=== PATIENT | female | born 1935 | race Caucasian/White ===

== ENCOUNTER 2016-08-08 16:07 | Emergency (ER) | payer OTHER ==
[~2016-08-08] VITALS: Ht 147.3 cm; Wt 68.9 kg
[~2016-08-08 16:07] MED LIST: AZOR 5-40 MG T1 EACH PO; DIVALPROEX SOD250 M3 PO; EXELON1 EAC1 TOP; NADOLOL40 M1 PO; SIMVASTATIN20 M2 PO; SYNTHROID112 MCG PO
--- NOTE | 2016-08-08 17:04 | ED MVC/FALL/TRAUMA COMPLAINT ---
History of Present Illness General Chief Complaint: Fall Stated Complaint: PT HAD FALL ,LT SHOULDER AND KNEE Source: patient Exam Limitations: no limitations Allergies Coded Allergies: oxycodone (From PERCOCET) (DOES NOT TOLERATE 09/21/15) Reconcile Medications Amlodipine Bes/Olmesartan Med (Elva 5-40 MG Tablet) 1 EACH TABLET 1 TAB PO DAILY BP (Reported) Ascorbate Calcium (Vitamin C) (Unknown Strength) TABLET (Unknown Dose) PO DAILY SUPPLEMENT (Reported) Cholecalciferol (Vitamin D3) (Vitamin D) (Unknown Strength) TABLET (Unknown Dose) PO DAILY SUPPLEMENT (Reported) Divalproex Sodium (Divalproex Sodium ER) 250 MG TAB.ER.24H 1 TAB PO DAILY MOOD (Reported) Levothyroxine Sodium (Synthroid) 112 MCG TABLET 1 TAB PO DAILY THYROID ( Reported) Multivit-Min/Iron/Folic/Lutein (Centrum Silver Women Tablet) 8 MG IRON-400 MCG- 300 MCG TABLET 1 TAB PO DAILY SUPPLEMENT (Reported) Nadolol 40 MG TABLET 20 MG PO DAILY HTN (Reported) Rivastigmine (Exelon) 9.5 MG/Patch PAT 1 PAT TOP DAILY DEMENTIA (Reported) Sertraline HCl 25 MG TABLET 1 TAB PO DAILY MENTAL HEALTH (Reported) Simvastatin (Simvastatin*) 20 MG TABLET 1 TAB PO Tuesday CHOL ( Reported) Triage Note: 80 YEAR OLD FEMALE TO ER WITH COMPLAINTS OF L KNEE PAIN WITH MOVEMENT ONLY AND SWELLING AND L SHOULDER PAIN WHEN SHE MOVES IT. DENIES PAIN WHILE SITTING STILL. PT STATES THAT DURING THE NIGHT SHE GOT UP TO USE THE BATHROOM WHEN SHE TRIPPED AND FELL. PT WAS ABLE TO GET HERSELF BACK TO BED AND WAS ABLE TO GET UP THIS AM AND GET DRESSED, DENIES PAIN WHILE SITTING Triage Nurses Notes Reviewed? yes Onset: Abrupt Duration: hour(s):, constant, continues in ED Timing: recent history Severity: moderate, severe Method of Injury: fall Loss of Consciousness: no loss of consciousness No Modifying Factors: none HPI: 80-year-old female comes into emergency room for further evaluation of left shoulder and left knee pain after a fall. Patient has some baseline dementia but is currently alert and oriented 3. She reports that while going to the bathroom this morning around 3 AM she slipped on a rug in the bathroom. Patient fell onto her left knee and then onto the ground. Her her left shoulder as well. Denies any headache or neck pain. Denies any chest or abdominal pain (YUDITH SANTILLAN) Vital Signs & Intake/Output Vital Signs & Intake/Output ED Intake and Output 08/09 0000 08/08 1200 Intake Total Output Total Balance Patient 152 lb Weight Past History Travel History Traveled to [place] past 21 day No Medical History Any Pertinent Medical History? see below for history Neurological: dementia EENT: NONE Cardiovascular: hypertension, CHOL Respiratory: NONE Gastrointestinal: NONE Hepatic: NONE Renal: NONE Musculoskeletal: NONE Psychiatric: NONE Endocrine: NONE Surgical History Surgical History: non-contributory Psychosocial History What is your primary language Malian Tobacco Use: Never used ETOH Use: denies use Illicit Drug Use: denies illicit drug use Family History Hx Contributory? No (YUDITH SANTILLAN) Review of Systems Review of Systems Constitutional: Reports: no symptoms. Eyes: Reports: no symptoms. Ears, Nose, Throat, Mouth: Reports: no symptoms. Respiratory: Reports: no symptoms. Cardiovascular: Reports: no symptoms. Gastrointestinal/Abdominal: Reports: no symptoms. Genitourinary: Reports: no symptoms. Musculoskeletal: Reports: see HPI. Skin: Reports: no symptoms. Neurological/Psychological: Reports: no symptoms. All Other Systems: Reviewed and Negative (YUDITH SANTILLAN) Physical Exam Physical Exam General Appearance: well developed/nourished, alert, awake Head: atraumatic, normal appearance Eyes: Bilateral: normal appearance, PERRL, EOMI. Ears, Nose, Throat, Mouth: hearing grossly normal, moist mucous membrane Neck: normal inspection, full range of motion Respiratory: normal breath sounds, no respiratory distress Cardiovascular: regular rate/rhythm Gastrointestinal: soft, non-tender Back: normal inspection Extremities: tenderness to left knee, limited range of motion, Neurologic/Psych: awake, alert, oriented 2 Skin: intact, normal color Core Measures ACS in differential dx? No Severe Sepsis Present: No Septic Shock Present: No (YUDITH SANTILLAN) Progress Differential Diagnosis: abd injury, C/T/L spine injury, ext injury, ICH, pelvis injury, pnemothorax, spinal cord injury Diagnostic Imaging: Viewed by Me: Radiology Read, CT Scan. Discussed w/RAD: Radiology Read, CT Scan. Initial ED EKG: normal intervals, normal p-waves, normal sinus rhythm, rate (57) , LBBB Hand-Off Endorsed To: HERMILA MURPHY Endorsed Time: 2035 Pending: EKG, labs Comments: SERVICE DATE: 08/08/16 EXAM TYPE: CAT - CT HEAD WO IV CONTRAST EXAMINATION: CT HEAD WITHOUT CONTRAST CLINICAL INFORMATION: Pain following a fall. COMPARISON: CT head dated 06/15/2009. TECHNIQUE: Contiguous axial imaging was performed from the skull base to vertex without intravenous administration of contrast. DLP: 600.71 mGy-cm. FINDINGS: The ventricles and sulci are enlarged, slightly increased since the prior examination. No visualized masses or midline shift are seen. There is no intra-axial or extra-axial hemorrhage. There are no fluid collections. Decreased attenuation is seen in the periventricular white matter, increased since the prior examination and compatible with chronic small vessel ischemic disease. The dickerson-white discrimination is preserved. The included paranasal sinuses and mastoid air cells are well aerated. The calvarium is intact. IMPRESSION: No intracranial hemorrhage or mass effect. Increased generalized age-related atrophy and chronic small vessel white matter ischemic changes. DICTATED BY: LOWELL DAMIAN MD DATE/TIME DICTATED:08/08/161756 [employer] COACH:JONNY DATE/TIME TRANSCRIBED:08/08/161756 EXAM TYPE: RAD - XRY-AP PELVIS; XRY-KNEE COMPLETE LEFT; XRY-SHOULDER COMPLETE- LEFT EXAMINATION: XR SHOULDER, LEFT XR PELVIS XR KNEE, LEFT CLINICAL INFORMATION: Pain following a fall. COMPARISON: Left shoulder radiographs dated 03/18/2014, hip radiographs dated 06/05/2013, and left knee radiographs dated 10/30/2006. TECHNIQUE: Four views of the left shoulder, a single AP view of the pelvis, as well as 4 views of the left knee were obtained. FINDINGS: LEFT SHOULDER: Superior subluxation of the humeral head, likely indicating an underlying full-thickness rotator cuff tear. Acromial undersurface bony remodeling as well as acromioclavicular marginal osteophytes. No acute fracture. Glenohumeral marginal osteophytes. No osseous erosion. Surgical clips redemonstrated within the left axilla. PELVIS: Degenerative disc disease within the visualized lower lumbar spine. Mild degenerative changes at the bilateral sacroiliac joints. Joint space narrowing and small marginal osteophytes at the right and left hips. No fracture or dislocation. No osseous erosion. No abnormal soft tissue calcification. LEFT KNEE: No fracture. Small tricompartmental marginal osteophytes. No osseous erosion. Trace joint effusion. No abnormal soft tissue calcification. IMPRESSION: LEFT SHOULDER: 1. No acute fracture. 2. Superior subluxation of the humeral head, likely indicating an underlying full-thickness rotator cuff tear. 3. Moderate acromioclavicular and glenohumeral osteoarthritis. PELVIS: 1. No acute fracture. 2. Degenerative disc disease within the visualized lower lumbar spine. 3. Mild degenerative changes at the bilateral sacroiliac and bilateral hip joints. LEFT KNEE: 1. No acute fracture. 2. Mild tricompartmental osteoarthritis. DICTATED BY: LOWELL DAMIAN MD DATE/TIME DICTATED:08/08/161748 [employer] COACH:JONNY DATE/TIME TRANSCRIBED:08/08/161748 (YUDITH SNATILLAN) Plan of Care: Orders Procedure Date/time Status Heart Healthy Diet 08/09 B Active Durable Medical Equipment 08/08 2213 Active TROPONIN LEVEL 08/08 2124 Complete EKG 08/08 2124 Active URINALYSIS 08/08 1656 Complete TROPONIN LEVEL 08/08 1656 Complete COMPREHENSIVE METABOLIC PANEL 08/08 1656 Complete CBC WITHOUT DIFFERENTIAL 08/08 1656 Complete EKG 08/08 1656 Active Laboratory Tests 08/08/16 2130: Troponin I < 0.01 08/08/16 1817: Urine Color YEL, Urine Clarity CLEAR, Urine pH 6.5, Ur Specific [place] 1.010, Urine Protein NEG, Urine Ketones NEG, Urine Nitrite NEG, Urine Bilirubin NEG, Urine Urobilinogen 0.2, Ur Leukocyte Esterase NEG, Ur Microscopic SEDIMENT EXAMINED, Urine RBC RARE, Ur Epithelial Cells RARE, Urine Mucus RARE, Urine Hemoglobin TRACE-INTACT, Urine Glucose NEG 08/08/16 1723: Anion Gap 9, Estimated GFR > 60, BUN/Creatinine Ratio 23.3, Glucose 85, Calcium 9.7, Total Bilirubin 0.5, AST 16, ALT 28, Alkaline Phosphatase 79, Troponin I < 0.01, Total Protein 6.8, Albumin 3.8, Globulin 3.0, Albumin/Globulin Ratio 1.3, CBC w Diff NO MAN DIFF REQ, RBC 3.98 L, MCV 89.8, MCH 29.5, RDW 14.5, MPV 7.3 L, Gran % 66.4, Lymphocytes % 18.2 L, Monocytes % 11.2 H, Eosinophils % 3.8, Basophils % 0.4, Absolute Granulocytes 4.4, Absolute Lymphocytes 1.2, Absolute Monocytes 0.7 H, Absolute Eosinophils 0.3, Absolute Basophils 0, PUBS MCHC 32.9 L 2100 pt resting in nad at this time, pending repeat trop 08/08/2016 10:10:36 PM discussed with the patient and her family at length all of her lab results I discussed with the patient at length all of their results. I had an extensive conversation regarding need for close follow up with their primary care physician this week as well as return precautions. I answered all of their questions, they feel comfortable with the plan and follow-up care. (EMILE ONTIVEROS,HERMILA) Repeat EKG: unchanged (nsr at 70 lbbb, no acute sargent) (HERMILA MURPHY) Departure Departure Disposition: HOME OR SELF CARE Condition: Stable Clinical Impression Primary Impression: Rotator cuff tear Secondary Impressions: Fall Referrals: SINDI MOREJON,SHELBI Charles (PCP/Family) Additional Instructions: Follow-up with your primary care doctor. Return if any concerns worsening symptoms. Please go over all results of today's visit with your primary care doctor. Contact your primary care doctor to let them know you were here in the emergency room. There may be nonspecific findings which may not be related to your visit today here in the emergency room but may require further evaluation and chronic monitoring by your primary care doctor. If you had a laceration today the chance of foreign body always remains. You should follow-up with your primary care doctor for recheck in 3-5 days for a wound check. If you had an x-ray done there is a chance that a fracture could have been missed on initial read and you should follow-up with your primary care doctor for repeat x-rays if symptoms persist. If your blood pressure was elevated here in the emergency room please have rechecked by her primary care doctor within the next 48 hours by your primary care doctor. If you were prescribed a narcotic here in the emergency room or any type of controlled substances you're not allowed to drive while taking this medication or operate any type of heavy machinery. Narcotics can make you feel lightheaded dizziness nausea and can cause constipation. You may need to warehouse picker a stool softener. Thank you for choosing [facility] emergency room. Please return to the emergency room immediately if you have any other concerns worsening of symptoms. Departure Forms: Customer Survey General Discharge Information (YUDITH SANTILLAN) Departure Time of Disposition: 2209 (EMILE ONTIVEROS,HERMILA) PA/WATER [employer]I ASSEMBLER Co-Sign Statement Statement: ED Attending supervision documentation- [] I saw and evaluated the patient. I have also reviewed all the pertinent lab results and diagnostic results. I agree with the findings and the plan of care as documented in the PA's/WATER SKI ASSEMBLER's documentation. [x] I have reviewed the ED Record and agree with the PA's/WATER SKI ASSEMBLER's documentation. [] Additions or exceptions (if any) to the PAs/WATER SKI ASSEMBLER's note and plan are summarized below: [] (YOBANI MOREJON,GRACE Tee)
[2016-08-08 17:28] LABS: ABSOLUTE BASOPHIL COUNT 0 /CUMM (0.0-0.2); ABSOLUTE EOSINOPHIL COUNT 0.3 /CUMM (0.0-0.7); ABSOLUTE GRANULOCYTE CT 4.4 /CUMM (1.4-6.5); ABSOLUTE LYMPH COUNT 1.2 /CUMM (1.2-3.4); ABSOLUTE MONOCYTE COUNT 0.7 /CUMM (0.10-0.60); BASOPHIL % 0.4 % (0.0-2.0); EOSINOPHIL % 3.8 % (0-5); GRANULOCYTE % 66.4 % (42.2-75.2); HEMATOCRIT 35.7 % (37-47); MEAN CORPUSCULAR HGB 29.5 PG (27.0-31.0); MEAN CORPUSCULAR HGB CONC 32.9 G/DL (33.0-37.0); MEAN CORPUSCULAR VOLUME 89.8 FL (81.0-99.0); MEAN PLATELET VOLUME 7.3 FL (7.4-10.4); PLATELET COUNT 230 /CUMM (130-400); RBC DISTRIBUTION WIDTH 14.5 % (11.5-14.5); RED BLOOD CELL CT 3.98 /CUMM (4.20-5.40); WHITE BLOOD CELL COUNT 6.7 /CUMM (4.8-10.8)
[2016-08-08] MEDS ORDERED: CENTRUM SILVER1 EACH PO (17:57)
[2016-08-08] MEDS ORDERED: VITAMIN D1000 UNIT PO (17:57)
[2016-08-08] MEDS ORDERED: VITAMIN C500 M6 PO (17:57)
[2016-08-08] MEDS ORDERED: SERTRALINE HCL25 MG PO (17:58)
--- NOTE | 2016-08-08 18:06 | RADIOLOGY REPORT ---
EXAMINATION: XR SHOULDER, LEFT XR PELVIS XR KNEE, LEFT CLINICAL INFORMATION: Pain following a fall. COMPARISON: Left shoulder radiographs dated 03/18/2014, hip radiographs dated 06/05/2013, and left knee radiographs dated 10/30/2006. TECHNIQUE: Four views of the left shoulder, a single AP view of the pelvis, as well as 4 views of the left knee were obtained. FINDINGS: LEFT SHOULDER: Superior subluxation of the humeral head, likely indicating an underlying full-thickness rotator cuff tear. Acromial undersurface bony remodeling as well as acromioclavicular marginal osteophytes. No acute fracture. Glenohumeral marginal osteophytes. No osseous erosion. Surgical clips redemonstrated within the left axilla. PELVIS: Degenerative disc disease within the visualized lower lumbar spine. Mild degenerative changes at the bilateral sacroiliac joints. Joint space narrowing and small marginal osteophytes at the right and left hips. No fracture or dislocation. No osseous erosion. No abnormal soft tissue calcification. LEFT KNEE: No fracture. Small tricompartmental marginal osteophytes. No osseous erosion. Trace joint effusion. No abnormal soft tissue calcification. IMPRESSION: LEFT SHOULDER: 1. No acute fracture. 2. Superior subluxation of the humeral head, likely indicating an underlying full-thickness rotator cuff tear. 3. Moderate acromioclavicular and glenohumeral osteoarthritis. PELVIS: 1. No acute fracture. 2. Degenerative disc disease within the visualized lower lumbar spine. 3. Mild degenerative changes at the bilateral sacroiliac and bilateral hip joints. LEFT KNEE: 1. No acute fracture. 2. Mild tricompartmental osteoarthritis.
--- NOTE | 2016-08-08 18:14 | CT SCAN REPORT ---
EXAMINATION: CT HEAD WITHOUT CONTRAST CLINICAL INFORMATION: Pain following a fall. COMPARISON: CT head dated 06/15/2009. TECHNIQUE: Contiguous axial imaging was performed from the skull base to vertex without intravenous administration of contrast. DLP: 600.71 mGy-cm. FINDINGS: The ventricles and sulci are enlarged, slightly increased since the prior examination. No visualized masses or midline shift are seen. There is no intra-axial or extra-axial hemorrhage. There are no fluid collections. Decreased attenuation is seen in the periventricular white matter, increased since the prior examination and compatible with chronic small vessel ischemic disease. The dickerson-white discrimination is preserved. The included paranasal sinuses and mastoid air cells are well aerated. The calvarium is intact. IMPRESSION: No intracranial hemorrhage or mass effect. Increased generalized age-related atrophy and chronic small vessel white matter ischemic changes.
[2016-08-08 22:09] VITALS: BP 148/70
== END 2016-08-08 22:26 ==
LOC: ERH 16:07
PROVIDERS: Physician Assistant Medical
DX: M75.102 Unspecified rotator cuff tear or rupture of left shoulder, not specified as traumatic (principal); M25.562 Pain in left knee; F03.90 Unspecified dementia, unspecified severity, without behavioral disturbance, psychotic disturbance, mood disturbance, and anxiety; I10 Essential (primary) hypertension; W01.0XXA Fall on same level from slipping, tripping and stumbling without subsequent striking against object, initial encounter; Y93.01 Activity, walking, marching and hiking; Y92.002 Bathroom of unspecified non-institutional (private) residence as the place of occurrence of the external cause
CPT/HCPCS: 72170; 73030-LT; 73562-LT; 81001; 93005; 93010